=== PATIENT | female | born 1965 | race Caucasian/White ===

== ENCOUNTER 2016-05-20 09:47 | Observation (INO) | payer OTHER ==
[~2016-05-20] VITALS: Ht 172.7 cm; Wt 110.0 kg
[~2016-05-20 09:47] MED LIST: COLACE100 MG PO; DEPAKOTE500 MG PO; IRON325 M1 PO; LISINOPRIL40 MG PO; LO-DOSE ASPIRIN81 M2 PO; LOPRESSOR100 M1 PO; RISPERDAL0.5 MG PO; ZESTRIL20 MG PO
[2016-05-20 10:33] LABS: CHLORIDE 109 mEq/L (99-109); POTASSIUM 4.2 mEq/L (3.7-5.4); SODIUM 142 mEq/L (136-147)
[2016-05-20 10:35] LABS: GLUCOSE 105 mg/dL (70-99)
[2016-05-20 10:37] LABS: ANION GAP 12 MEQ/L (2-14); BASOPHIL COUNT 0.1 K/uL (0-0.1); EOSINOPHIL (%) 0.8 % (0-5); EOSINOPHIL COUNT 0.1 K/uL (0-0.3); HEMATOCRIT 35.8 % (36.0-46.0); IMMATURE GRANULOCYTE (%) 0.3 % (0.0-0.7); INSTRUMENT ABS NEUTROPHIL CT 4.4 K/uL; LYMPHOCYTE COUNT 1.1 K/uL (1.0-2.8); MCH 21.7 PG (29.0-34.0); MCHC 29.9 G/DL (30.0-36.0); MCV 72.8 FL (83-99); MEAN PLAT.VOLUME 11.3 uM^3 (9.5-12.4); MONOCYTE (%) 7.2 % (3-12); MONOCYTE COUNT 0.4 K/uL (0-0.8); NEUTROPHIL (%) 72.7 % (45-76); NEUTROPHIL COUNT 4.4 K/uL (1.8-6.4); PLATELET COUNT 239 K/uL (156-360); RBC DIS.WIDTH-CV 15.9 % (11.8-14.6); RBC DIS.WIDTH-SD 41.1 % (39-53); RED BLOOD COUNT 4.92 M/uL (3.80-5.20)
[2016-05-20 10:39] LABS: GFR ESTIMATE (CALCULATED) > 59 mL/min/
[2016-05-20 10:40] LABS: UREA NITROGEN (BUN) 12 mg/dL (9-23)
[2016-05-20 10:47] LABS: TROP-I INTERPRETATION NEGATIVE; TROPONIN-I < 0.01 ng/mL (0.0-0.30)
[2016-05-20 13:22] LABS: D-DIMER ELISA 1.38 mg/L FEU (< 0.57)
[2016-05-20 15:49] VITALS: BP 114/58
[2016-05-20 16:50] VITALS: BP 124/72
[2016-05-20 16:53] VITALS: BP 123/76
[2016-05-20 17:02] VITALS: BP 136/67
[2016-05-20 18:08] LABS: TROP-I INTERPRETATION NEGATIVE; TROPONIN-I < 0.01 ng/mL (0.0-0.30)
[2016-05-20 19:37] VITALS: BP 121/66
[2016-05-20] MEDS ORDERED: MILK OF MAGNESI10 ML PO (20:44)
[2016-05-20 22:55] LABS: TROP-I INTERPRETATION NEGATIVE; TROPONIN-I < 0.01 ng/mL (0.0-0.30)
== END 2016-05-21 00:12 ==
LOC: EME → EDBD 09:47 → EME 09:47 → EDOF 11:39 → 5WEST 15:45
PROVIDERS: Emergency Medicine; Hospitalist; Nurse Practitioner Adult Health
DX: R07.89 Other chest pain (principal); I10 Essential (primary) hypertension; F31.9 Bipolar disorder, unspecified; I25.2 Old myocardial infarction; E66.9 Obesity, unspecified; Z68.36 Body mass index [BMI] 36.0-36.9, adult
CPT/HCPCS: 71010; 71275; 80048; 84484; 85025; 85379; 93005; 99281; 99285; G0378; J1644; J2270; J2765